=== PATIENT | male | born 1940 | race American Indian/Alaskan Native ===

== ENCOUNTER 2022-03-09 07:53 | Inpatient (IN) ==
--- NOTE | 2022-03-09 08:56 | Internal Med History&Physical ---
HPI History of Present Illness Patient information: Note initiated : 03/09/22 at 8:39 am Service Date, if different from initiated Date: [] Patient: Jagdeep Hair a 81 y/o M admitted on for Pneumonia. Chief Complaint: [shortness of breath] Chief complaint: shortness of breath History of present illness: Mr. 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) Nicotine dependence (Chronic) COPD exacerbation (Chronic) Sepsis (Chronic) Right-sided chest pain (Chronic) Shortness of breath (Chronic) Nausea & vomiting (Chronic) Osteoarthritis (Chronic) Hypothyroidism (Chronic) Hypertension (Chronic) Chronic obstructive pulmonary disease (Chronic) Bilateral pneumonia (Chronic) Hypoglycemia (Chronic) Diabetes mellitus (Chronic) Bronchiectasis (Chronic) Anemia (Chronic) Hyperparathyroidism due to renal insufficiency (Chronic) Chronic kidney disease, stage IV (severe) (Chronic) Secondary hyperparathyroidism of renal origin (Chronic) Edema (Chronic) Proteinuria (Chronic) Hypertensive renal disease (Chronic) History of pacemaker (Acute) Hx of arthroscopy of knee (Acute) Hx of renal calculi (Acute) History of repair of hiatal hernia (Acute) Hx of heart surgery (Acute) Hx of cystoscopy (Acute) Hx of appendectomy (Acute) Vitamin D deficiency (Chronic) Renal osteodystrophy (Chronic) Accessory kidney (Chronic) Hypertension, essential (Chronic) Hypercholesterolemia (Chronic) Hypertension in chronic kidney disease due to type 2 diabetes mellitus (Chronic) Essential hypertension (Chronic) DM (diabetes mellitus) type II controlled with renal manifestation (Chronic) Depression (Chronic) Coronary artery disease (Chronic) Chronic kidney disease, stage III (moderate) (Chronic) Chondromalacia of patella (Chronic) Asthma (Chronic) Medical History (Updated 03/09/22 @ 08:54 by Antolin Clinton MD) Accessory kidney Anemia Asthma Bilateral pneumonia Right greater than left Blindness of right eye False eye Bronchiectasis Chondromalacia of patella left Knee- Dr. Zavala Chronic kidney disease, stage III (moderate) Chronic kidney disease, stage IV (severe) Chronic obstructive pulmonary disease COPD exacerbation Coronary artery disease Depression Diabetes mellitus DM (diabetes mellitus) type II controlled with renal manifestation He reports his blood sugars are low. I had increased his glipizide to 10 mg twice dialy and I will add Actos 30 mg once daily. Edema Essential hypertension Hypertension. Blood pressures are high in the office but he is postural at home. I had cut down his Lasiz and Micardis to 40 mg each daily and increased his clonidine to 0.2 b.i.d. the last time he was here. I will discontinue the Micardis at this time. If the blood pressure is still low, then he can discontinue the norvasc. Hx of renal calculi 12/23/95 Hypercholesterolemia Hyperparathyroidism due to renal insufficiency Hypertension Hypertension in chronic kidney disease due to type 2 diabetes mellitus Hypertension, essential Hypertensive renal disease Hypoglycemia Hypothyroidism Multifocal pneumonia Nausea & vomiting Nicotine dependence Osteoarthritis Proteinuria Renal osteodystrophy Renal bone disease Right-sided chest pain Secondary hyperparathyroidism of renal origin Phos improved to 4.6, calcium at upper end of normal at 10.2 ? from volume depletion PTH is elevated to 133 vitamin D is low given current calcium level ct ergocalciferol to once a mth ct sara sbinders will monitor Sepsis Shortness of breath Type 2 diabetes mellitus with peripheral neuropathy Vitamin D deficiency Surgical History History of herniorrhaphy History of pacemaker 07/10/14 Pace-Defib w/lead, insert pilse gen w/single lead History of repair of hiatal hernia 04/19/14 with Mesh Hx of appendectomy 02/08/97 Hx of arthroscopy of knee 02/22/13 Hx of cystoscopy 12/20/92 Hx of heart surgery Family History Other No pertinent family history Social History (Updated 12/06/18 @ 14:47 by Janki Fontenot MD) marital status: alcohol intake frequency: former alcohol drinker MEDS/ALLERGIES Home Medications and Allergies Home Medications Medication Instructions Recorded Confirmed Type aspirin 81 mg chewable tablet 81 mg PO QDAY tab 07/18/15 12/06/18 History cyanocobalamin (vitamin B-12) 1,000 mcg PO QDAY tab 07/18/15 12/06/18 History 1,000 mcg tablet clopidogrel 75 mg tablet 75 mg PO QDAY tab 10/11/15 12/06/18 History rosuvastatin 20 mg tablet 20 mg PO QHS tab 10/11/15 12/06/18 History isosorbide mononitrate 60 mg 60 mg PO QDAY 30 Days #30 tab 04/23/16 12/06/18 History tablet,extended release 24 hr albuterol sulfate 90 mcg/actuation 2 puff INHALATION Q4H PRN g 02/07/18 07/0 05/09 History aerosol inhaler (ProAir HFA) lancets #50 each 02/07/18 05/27/18 History saxagliptin 2.5 mg tablet (Onglyza) 2.5 mg PO QDAY 02/07/18 12/06/18 History allopurinol 100 mg tablet 100 mg PO QDAY 02/22/18 12/06/18 History ergocalciferol (vitamin D2) 1,250 50,000 unit PO QWEEK #4.285 cap 02/22/18 12/06/18 Rx mcg (50,000 unit) capsule ranitidine HCl 150 mg tablet 150 mg PO BID PRN tab 02/22/18 12/06/18 History sotalol 80 mg tablet 80 mg PO QDAY tab 02/22/18 12/06/18 History acetaminophen 300 mg-codeine 30 mg 1 tab PO Q6H PRN 12/06/18 12/06/18 History tablet furosemide 40 mg tablet 40 mg PO QDAY 12/06/18 12/06/18 History glipizide 5 mg tablet, extended 5 mg PO QDAY 12/06/18 12/06/18 History release 24 hr hydralazine 10 mg tablet 10 mg PO BID #60 tab 12/06/18 12/06/18 Rx losartan 100 mg tablet 100 mg PO QDAY #30 tab 12/06/18 12/06/18 Rx omeprazole 20 mg capsule,delayed 20 mg PO QDAY 12/06/18 12/06/18 History release sevelamer HCl 800 mg tablet 800 mg PO TID 12/06/18 12/06/18 History Allergies Allergy/AdvReac Type Severity Reaction Status Date / Time amlodipine [From [facility]] Allergy Mild Unknown Verified 12/06/18 13:03 azithromycin Allergy Unknown Unknown Unverified 12/06/18 13:03 Influenza Virus Vaccines Allergy Unknown Unknown Verified 12/06/18 13:03 NSAIDS (Non-Steroidal Allergy Unknown Unknown Verified 12/06/18 13:03 Anti-Inflamma ferrous gluconate AdvReac Unknown itchy Verified 12/06/18 13:03 NSAIDS Allergy Mild Unknown Uncoded 12/06/18 13:03 EXAM Constitutional General appearance: cooperative and no acute distress Head Head exam: Present atraumatic and normocephalic Eye Eye exam: Present EOMI and PERRL ENT ENT exam: Present mucous membranes moist, normal exam and normal external ear exam Neck Neck exam: Present normal inspection; Absent lymphadenopathy, tenderness or thyromegaly Respiratory Respiratory exam: Absent accessory muscle use, respiratory distress or wheezes Cardiovascular Cardiovascular exam: Present normal rate and rhythm; Absent JVD GI/Abdominal GI/Abdominal exam: Present normal bowel sounds and soft; Absent organomegaly or tenderness Rectal Rectal exam: Present deferred Extremities Exam Extremities exam: Present full ROM, normal capillary refill and normal inspection; Absent tenderness Neurological Exam Neurological exam: Present alert, CN II-XII intact and oriented X3; Absent motor sensory deficit Psychiatric Psychiatric exam: Present normal affect and normal mood; Absent anxious or depressed Skin Skin exam: Present dry and intact A/P Assessment and plan (1) Type 2 diabetes mellitus with peripheral neuropathy: Status: Chronic (2) Chronic obstructive pulmonary disease: Status: Chronic (3) Hypertension in chronic kidney disease due to type 2 diabetes mellitus: Status: Chronic (4) Hypercholesterolemia: Status: Chronic (5) Coronary artery disease: Status: Chronic (6) ESRD (end stage renal disease) on dialysis: Status: Acute (7) Community acquired pneumonia: Status: Acute Narrative A/P Narrative: Assessment and Plans: 1. Community acquired pneumonia: Luz Marina negative, influenza A/B negative Inpatient med surg Serial lactic acid level Blood culture Levaquin Supplemental oxygen therapy cbc w/ auto diff in the morning to trend WBC Tylenol PRN fever Robitussin DM PRN cough DuoNEB NEB PRN wheezing 2. ESRD on HD: Consult Dr. Escoto for dialysis needs CMP daily to trend kidney functions and electrolyte levels 3. T2DM with diabetic polyneuropathy: HgA1c Hold oral hypoglycemics SSI AC HS Accu Chek AC HS Hypoglycemia protocol Diabetic and renal diet Gabapentin 4. Essential HTN: Continue oral antihypertensives 5. h/o CAD: Aspirin Plavix Statin therapy 6: Dyslipidemia: Statin therapy 7. h/o COPD: Supplemental oxygen therapy DuoNEB NEB PRN wheezing GI ppx: oral PPI DVT ppx: Heparin Code status: Full Prognosis: guarded Disposition: inpatient med surg Time Spent With Patient Time: Total time spent is greater than 50% in coordination of care (as documented) at patient's floor/unit and/or counseling patient: Total time spent with greater than 50% in coordination of care (as documented) at patient's floor/unit and/or counseling patient:: 50 - 70 minutes
--- NOTE | 2022-03-09 10:14 | Internal Med History&Physical ---
HPI History of Present Illness Patient information: Note initiated : 03/09/22 at 10:10 am Service Date, if different from initiated Date: [] Patient: Jagdeep Hair 81 y/o M admitted on 03/09/22 for Pneumonia. Chief Complaint: [shortness of breath] Chief complaint: shortness of breath History of present illness: Mr. Hair is a 81 year old M history of end-stage renal disease on hemodialysis, CAD status post stents placement x1, type 2 diabetes mellitus with neuropathy, COPD, essential hypertensions, presenting with 2-day history of acute onset shortness of breath with productive cough. No prior similar epi sode. He is vaccinated against COVID-pneumonia. Patient denies any sick contact or recent travel. Since yesterday patient had acute onset shortness of breath, worsening. He is also complaining of productive cough with clear sputum. He is coming of chills but denies any fever or diaphoresis. He denies any chest pain or palpitations or any other pains. He presented to outside ED and they screened the patient's for COVID-pneumonia and influenza which were negative. Chest x-ray showing right middle lobe infiltrate cannot consistent with pneumonia. Admission request was made for bed not being available in their facility. Constitutional Constitutional: Present chills and weakness; Absent excessive sweating, fatigue or fever(s) EENT Eyes: Absent blurry vision, change in vision, loss of vision or other visual disturbances Ears: Absent decreased hearing or tinnitus Nose, mouth and throat: Absent abnormal hearing, dry mouth, headache(s), nasal congestion or sore throat Cardiovascular Cardiovascular: Absent chest pain, chest pain at rest, edema, irregular heart rhythm or palpatations Respiratory Respiratory: Present cough, dyspnea and excessive phlegm production; Absent wheezing Gastrointestinal Gastrointestinal: Absent abdominal pain, constipation, diarrhea, nausea or vomit ing Musculoskeletal Musculoskeletal: Absent back pain, deformity, limited range of motion, muscle cramps, muscle weakness or numbness Integumentary Integumentary: Absent lesions, rash or wounds Neurological Neurological: Absent focal weakness, headache(s) or numbness Psychiatric Psychiatric: Absent anxiety, depression or hallucinations PFSH PFSH All Active Problems (Updated 03/09/22 @ 08:54 by Antolin Clinton MD) Community acquired pneumonia (Acute) ESRD (end stage renal disease) on dialysis (Acute) Multifocal pneumonia (Chronic) 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) Nicotine dependence (Chronic) COPD exacerbation (Chronic) Sepsis (Chronic) Right-sided chest pain (Chronic) Shortness of breath (Chronic) Nausea & vomiting (Chronic) Osteoarthritis (Chronic) Hypothyroidism (Chronic) Hypertension (Chronic) Chronic obstructive pulmonary disease (Chronic) Bilateral pneumonia (Chronic) Hypoglycemia (Chronic) Diabetes mellitus (Chronic) Bronchiectasis (Chronic) Anemia (Chronic) Hyperparathyroidism due to renal insufficiency (Chronic) Chronic kidney disease, stage IV (severe) (Chronic) Secondary hyperparathyroidism of renal origin (Chronic) Edema (Chronic) Proteinuria (Chronic) Hypertensive renal disease (Chronic) History of pacemaker (Acute) Hx of arthroscopy of knee (Acute) Hx of renal calculi (Acute) History of repair of hiatal hernia (Acute) Hx of heart surgery (Acute) Hx of cystoscopy (Acute) Hx of appendectomy (Acute) Vitamin D deficiency (Chronic) Renal osteodystrophy (Chronic) Accessory kidney (Chronic) Hypertension, essential (Chronic) Hypercholesterolemia (Chronic) Hypertension in chronic kidney disease due to type 2 diabetes mellitus (Chronic) Essential hypertension (Chronic) DM (diabetes mellitus) type II controlled with renal manifestation (Chronic) Depression (Chronic) Coronary artery disease (Chronic) Chronic kidney disease, stage III (moderate) (Chronic) Chondromalacia of patella (Chronic) Asthma (Chronic) Medical History (Updated 03/09/22 @ 08:54 by Antolin Clinton MD) Accessory kidney Anemia Asthma Bilateral pneumonia Right greater than left Blindness of right eye False eye Bronchiectasis Chondromalacia of patella left Knee- Dr. Zavala Chronic kidney disease, stage III (moderate) Chronic kidney disease, stage IV (severe) Chronic obstructive pulmonary disease COPD exacerbation Coronary artery disease Depression Diabetes mellitus DM (diabetes mellitus) type II controlled with renal manifestation He reports his blood sugars are low. I had increased his glipizide to 10 mg twice dialy and I will add Actos 30 mg once daily. Edema Essential hypertension Hypertension. Blood pressures are high in the office but he is postural at home. I had cut down his Lasiz and Micardis to 40 mg each daily and increased his clonidine to 0.2 b.i.d. the last time he was here. I will discontinue the Micardis at this time. If the blood pressure is still low, then he can discontinue the norvasc. Hx of renal calculi 02/01/96 Hypercholesterolemia Hyperparathyroidism due to renal insufficiency Hypertension Hypertension in chronic kidney disease due to type 2 diabetes mellitus Hypertension, essential Hypertensive renal disease Hypoglycemia Hypothyroidism Multifocal pneumonia Nausea & vomiting Nicotine dependence Osteoarthritis Proteinuria Renal osteodystrophy Renal bone disease Right-sided chest pain Secondary hyperparathyroidism of renal origin Phos improved to 4.6, calcium at upper end of normal at 10.2 ? from volume depletion PTH is elevated to 133 vitamin D is low given current calcium level ct ergocalciferol to once a mth ct sara sbinders will monitor Sepsis Shortness of breath Type 2 diabetes mellitus with peripheral neuropathy Vitamin D deficiency Surgical History History of herniorrhaphy History of pacemaker 07/10/14 Pace-Defib w/lead, insert pilse gen w/single lead History of repair of hiatal hernia 04/19/14 with Mesh Hx of appendectomy 02/08/97 Hx of arthroscopy of knee 02/22/13 Hx of cystoscopy 12/20/92 Hx of heart surgery Family History Other No pertinent family history Social History (Updated 12/06/18 @ 14:47 by Janki Fontenot MD) marital status: alcohol intake frequency: former alcohol drinker MEDS/ALLERGIES Home Medications and Allergies Home Medications Medication Instructions Recorded Confirmed Type aspirin 81 mg chewable tablet 81 mg PO QDAY tab 07/18/15 12/06/18 History cyanocobalamin (vitamin B-12) 1,000 mcg PO QDAY tab 07/18/15 12/06/18 History 1,000 mcg tablet clopidogrel 75 mg tablet 75 mg PO QDAY tab 10/11/15 12/06/18 History rosuvastatin 20 mg tablet 20 mg PO QHS tab 10/11/15 12/06/18 History isosorbide mononitrate 60 mg 60 mg PO QDAY 30 Days #30 tab 04/23/16 12/06/18 History tablet,extended release 24 hr albuterol sulfate 90 mcg/actuation 2 puff INHALATION Q4H PRN g 02/07/1805/09 History aerosol inhaler (ProAir HFA) lancets #50 each 02/07/18 05/27/18 History saxagliptin 2.5 mg tablet (Onglyza) 2.5 mg PO QDAY 02/07/18 12/06/18 History allopurinol 100 mg tablet 100 mg PO QDAY 02/22/18 12/06/18 History ergocalciferol (vitamin D2) 1,250 50,000 unit PO QWEEK #4.285 cap 02/22/18 12/06/18 Rx mcg (50,000 unit) capsule ranitidine HCl 150 mg tablet 150 mg PO BID PRN tab 02/22/18 12/06/18 History sotalol 80 mg tablet 80 mg PO QDAY tab 02/22/18 12/06/18 History acetaminophen 300 mg-codeine 30 mg 1 tab PO Q6H PRN 12/06/18 12/06/18 History tablet furosemide 40 mg tablet 40 mg PO QDAY 12/06/18 12/06/18 History glipizide 5 mg tablet, extended 5 mg PO QDAY 12/06/18 12/06/18 History release 24 hr hydralazine 10 mg tablet 10 mg PO BID #60 tab 12/06/18 12/06/18 Rx losartan 100 mg tablet 100 mg PO QDAY #30 tab 12/06/18 12/06/18 Rx omeprazole 20 mg capsule,delayed 20 mg PO QDAY 12/06/18 12/06/18 History release sevelamer HCl 800 mg tablet 800 mg PO TID 12/06/18 12/06/18 History Allergies Allergy/AdvReac Type Severity Reaction Status Date / Time amlodipine [From [facility]] Allergy Mild Unknown Verified 12/06/18 13:03 azithromycin Allergy Unknown Unknown Unverified 12/06/18 13:03 Influenza Virus Vaccines Allergy Unknown Unknown Verified 12/06/18 13:03 NSAIDS (Non-Steroidal Allergy Unknown Unknown Verified 12/06/18 13:03 Anti-Inflamma ferrous gluconate AdvReac Unknown itchy Verified 12/06/18 13:03 NSAIDS Allergy Mild Unknown Uncoded 12/06/18 13:03 EXAM Constitutional General appearance: cooperative and no acute distress Head Head exam: Present atraumatic and normocephalic Eye Eye exam: Absent EOMI or PERRL Additional comments: right eye blindness ENT ENT exam: Present mucous membranes moist, normal exam and normal external ear exam Additional comments: Nasal cannula in place Neck Neck exam: Present normal inspection; Absent lymphadenopathy, tenderness or thyromegaly Respiratory Respiratory exam: Present rhonchi; Absent accessory muscle use, respiratory distress or wheezes Cardiovascular Cardiovascular exam: Present normal rate and rhythm; Absent JVD GI/Abdominal GI/Abdominal exam: Present normal bowel sounds and soft; Absent organomegaly or tenderness Rectal Rectal exam: Present deferred Extremities Exam Extremities exam: Present full ROM, normal capillary refill and normal inspection; Absent tenderness Additional comments: AV fistula with palpable thrill in right arm Neurological Exam Neurological exam: Present alert, CN II-XII intact and oriented X3; Absent motor sensory deficit Psychiatric Psychiatric exam: Present normal affect and normal mood; Absent anxious or depressed Skin Skin exam: Present dry and intact A/P Assessment and plan (1) Type 2 diabetes mellitus with peripheral neuropathy: Status: Chronic (2) Chronic obstructive pulmonary disease: Status: Chronic (3) Hypertension in chronic kidney disease due to type 2 diabetes mellitus: Status: Chronic (4) Hypercholesterolemia: Status: Chronic (5) Coronary artery disease: Status: Chronic (6) ESRD (end stage renal disease) on dialysis: Status: Acute (7) Community acquired pneumonia: Status: Acute Narrative A/P Narrative: Assessment and Plans: 1. Community acquired pneumonia: Luz Marina negative, influenza A/B negative Inpatient med surg Serial lactic acid level Procalcitonin Blood culture Levaquin Supplemental oxygen therapy cbc w/ auto diff in the morning to trend WBC Tylenol PRN fever Robitussin DM PRN cough DuoNEB NEB PRN wheezing 2. ESRD on HD: Consult Dr. Escoto for dialysis needs CMP daily to trend kidney functions and electrolyte levels 3. T2DM with diabetic polyneuropathy: HgA1c Hold oral hypoglycemics SSI AC HS Accu Chek AC HS Hypoglycemia protocol Diabetic and renal diet Gabapentin 4. Essential HTN: Continue oral antihypertensives 5. h/o CAD: Aspirin Plavix Statin therapy 6: Dyslipidemia: Statin therapy 7. h/o COPD: Supplemental oxygen therapy DuoNEB NEB PRN wheezing GI ppx: oral PPI DVT ppx: Heparin Code status: DNI Prognosis: guarded Disposition: inpatient med surg Time Spent With Patient Time: Total time spent is greater than 50% in coordination of care (as documented) at patient's floor/unit and/or counseling patient: Total time spent with greater than 50% in coordination of care (as documented) at patient's floor/unit and/or counseling patient:: 50 - 70 minutes
[2022-03-09] MEDS ORDERED: ALBUTEROL SULFATE 200 PUFF INHALER INH PRN (10:22)
[2022-03-09] MEDS ORDERED: guaiFENesin/DEXTROMETHORPHAN ORAL SOL PO PRN (10:22)
[2022-03-09] MEDS ORDERED: ZOLPIDEM 5 MG TABLET PO PRN (10:22)
[2022-03-09] MEDS ORDERED: DEXTROSE 50% 50 ML VIAL IV PRN (10:22)
[2022-03-09] MEDS ORDERED: IPRATROPIUM/ALBUTEROL 3 ML AMPUL.NEB NEB PRN (10:22)
[2022-03-09] MEDS ORDERED: ONDANSETRON 4 MG/2 ML VIAL IV PRN (10:22)
[2022-03-09] MEDS ORDERED: LEVOFLOXACIN 500 MG/100 ML BAG IV SCH (10:22)
[2022-03-09] MEDS ORDERED: ACETAMINOPHEN W/CODEINE #3 1 TABLET PO PRN (10:22)
[2022-03-09] MEDS ORDERED: DEXTROSE 31 GM ORAL.SUSP PO PRN (10:22)
[2022-03-09] MEDS: hydrALAZINE 10 MG TABLET PO SCH ×3 (11:20→21:34)
[2022-03-09] MEDS: ERGOCALCIFEROL (VITAMIN D2) 50,000 UNIT CAPSULE PO SCH (11:20)
[2022-03-09] MEDS: FUROSEMIDE 40 MG TABLET PO SCH (11:21)
[2022-03-09 11:46] LABS: Estimated Average Glucose(eAG) 94 mg/dL; Hemoglobin A1C 4.9 % Hgb (4.0-6.0)
[2022-03-09] MEDS: OMEPRAZOLE 20 MG CAPSULE PO SCH (11:47)
[2022-03-09] MEDS: ALLOPURINOL 100 MG TABLET PO SCH (11:47)
[2022-03-09] MEDS: HEPARIN 5,000 UNIT/ML VIAL SQ SCH ×2 (11:47→21:16)
[2022-03-09] MEDS: SOTALOL 80 MG TABLET PO SCH (11:47)
[2022-03-09] MEDS: CLOPIDOGREL 75 MG TABLET PO SCH (11:47)
[2022-03-09] MEDS: ISOSORBIDE MONONITRATE 60 MG TAB.XL.24H PO SCH (11:47)
[2022-03-09] MEDS: DOCUSATE SODIUM 100 MG CAPSULE PO SCH ×2 (11:47→21:17)
[2022-03-09] MEDS ORDERED: cefTRIAXone 2 GM in DEXTROSE 5% IN WATER 50 ML IV SCH (12:00)
--- NOTE | 2022-03-09 12:09 | Nephrology Consult Note ---
HPI Data of Consult Patient: new to practice Consult date: 03/09/22 Requesting physician: Antolin Clinton Primary Care Provider: Geovany Pepper Consult Narrative Patient Information: Note initiated : 03/09/22 at 12:07 pm Patient: Jagdeep Hair 81 y/o M admitted on 03/09/22 for Pneumonia. 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 He was presented to [facility] ED and diagnosed with pneumonia. He was transferred to [facility] for inpatient care. Nephrology consultation was requested for end stage renal disease. Chief complaint: Weakness Reason for consult: End stage renal disease on chronic hemodialysis cc:: CC: Antolin Clinton MD Constitutional Constitutional: Present fatigue and weakness EENT Nose, mouth and throat: Absent nasal discharge or sore throat Cardiovascular Cardiovascular: Absent chest pain or palpatations Respiratory Respiratory: Present cough and dyspnea Gastrointestinal Gastrointestinal: Absent abdominal pain or nausea Integumentary Integumentary: Absent rash Neurological Neurological: Present weakness; Absent confusion Psychiatric Psychiatric: Absent anxiety or panic attacks Allergic/Immunologic Allergic/Immunologic: Absent tongue swelling or uticaria PFSH PFSH All Active Problems (Updated 03/09/22 @ 12:08 by Maicol Escoto MD) Community acquired pneumonia (Acute) ESRD (end stage renal disease) on dialysis (Chronic) Multifocal pneumonia (Chronic) 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) Nicotine dependence (Chronic) COPD exacerbation (Chronic) Sepsis (Chronic) Right-sided chest pain (Chronic) Shortness of breath (Chronic) Nausea & vomiting (Chronic) Osteoarthritis (Chronic) Hypothyroidism (Chronic) Hypertension (Chronic) Chronic obstructive pulmonary disease (Chronic) Bilateral pneumonia (Chronic) Hypoglycemia (Chronic) Diabetes mellitus (Chronic) Bronchiectasis (Chronic) Anemia (Chronic) Hyperparathyroidism due to renal insufficiency (Chronic) Chronic kidney disease, stage IV (severe) (Chronic) Secondary hyperparathyroidism of renal origin (Chronic) Edema (Chronic) Proteinuria (Chronic) Hypertensive renal disease (Chronic) History of pacemaker (Acute) Hx of arthroscopy of knee (Acute) Hx of renal calculi (Acute) History of repair of hiatal hernia (Acute) Hx of heart surgery (Acute) Hx of cystoscopy (Acute) Hx of appendectomy (Acute) Vitamin D deficiency (Chronic) Renal osteodystrophy (Chronic) Accessory kidney (Chronic) Hypertension, essential (Chronic) Hypercholesterolemia (Chronic) Hypertension in chronic kidney disease due to type 2 diabetes mellitus (Chronic) Essential hypertension (Chronic) DM (diabetes mellitus) type II controlled with renal manifestation (Chronic) Depression (Chronic) Coronary artery disease (Chronic) Chronic kidney disease, stage III (moderate) (Chronic) Chondromalacia of patella (Chronic) Asthma (Chronic) Medical History (Updated 03/09/22 @ 12:08 by Maicol Escoto MD) Accessory kidney Anemia Asthma Bilateral pneumonia Right greater than left Blindness of right eye False eye Bronchiectasis Chondromalacia of patella left Knee- Dr. Zavala Chronic kidney disease, stage III (moderate) Chronic kidney disease, stage IV (severe) Chronic obstructive pulmonary disease COPD exacerbation Coronary artery disease Depression Diabetes mellitus DM (diabetes mellitus) type II controlled with renal manifestation He reports his blood sugars are low. I had increased his glipizide to 10 mg twice dialy and I will add Actos 30 mg once daily. Edema Essential hypertension Hypertension. Blood pressures are high in the office but he is postural at home. I had cut down his Lasiz and Micardis to 40 mg each daily and increased his clonidine to 0.2 b.i.d. the last time he was here. I will discontinue the Micardis at this time. If the blood pressure is still low, then he can discontinue the norvasc. Hx of renal calculi 12/23/95 Hypercholesterolemia Hyperparathyroidism due to renal insufficiency Hypertension Hypertension in chronic kidney disease due to type 2 diabetes mellitus Hypertension, essential Hypertensive renal disease Hypoglycemia Hypothyroidism Multifocal pneumonia Nausea & vomiting Nicotine dependence Osteoarthritis Proteinuria Renal osteodystrophy Renal bone disease Right-sided chest pain Secondary hyperparathyroidism of renal origin Phos improved to 4.6, calcium at upper end of normal at 10.2 ? from volume depletion PTH is elevated to 133 vitamin D is low given current calcium level ct ergocalciferol to once a mth ct sara sbinders will monitor Sepsis Shortness of breath Type 2 diabetes mellitus with peripheral neuropathy Vitamin D deficiency Surgical History History of herniorrhaphy History of pacemaker 07/10/14 Pace-Defib w/lead, insert pilse gen w/single lead History of repair of hiatal hernia 04/19/14 with Mesh Hx of appendectomy 02/08/97 Hx of arthroscopy of knee 02/22/13 Hx of cystoscopy 12/20/92 Hx of heart surgery Family History Other No pertinent family history Social History (Updated 12/06/18 @ 14:47 by Janki Fontenot MD) marital status: alcohol intake frequency: former alcohol drinker MEDS/ALLERGIES Home Medications and Allergies Home Medications Medication Instructions Recorded Confirmed Type aspirin 81 mg chewable tablet 81 mg PO QDAY tab 07/18/15 12/06/18 History cyanocobalamin (vitamin B-12) 1,000 mcg PO QDAY tab 07/18/15 12/06/18 History 1,000 mcg tablet clopidogrel 75 mg tablet 75 mg PO QDAY tab 10/11/15 12/06/18 History rosuvastatin 20 mg tablet 20 mg PO QHS tab 10/11/15 12/06/18 History isosorbide mononitrate 60 mg 60 mg PO QDAY 30 Days #30 tab 04/23/16 12/06/18 History tablet,extended release 24 hr albuterol sulfate 90 mcg/actuation 2 puff INHALATION Q4H PRN g 02/07/18 05/27/18 History aerosol inhaler (ProAir HFA) lancets #50 each 02/07/18 05/27/18 History saxagliptin 2.5 mg tablet (Onglyza) 2.5 mg PO QDAY 02/07/18 12/06/18 History allopurinol 100 mg tablet 100 mg PO QDAY 02/22/18 12/06/18 History ergocalciferol (vitamin D2) 1,250 50,000 unit PO QWEEK #4.285 cap 02/22/18 12/06/18 Rx mcg (50,000 unit) capsule ranitidine HCl 150 mg tablet 150 mg PO BID PRN tab 02/22/18 12/06/18 History sotalol 80 mg tablet 80 mg PO QDAY tab 02/22/18 12/06/18 History acetaminophen 300 mg-codeine 30 mg 1 tab PO Q6H PRN 12/06/18 12/06/18 History tablet furosemide 40 mg tablet 40 mg PO QDAY 12/06/18 12/06/18 History glipizide 5 mg tablet, extended 5 mg PO QDAY 12/06/18 12/06/18 History release 24 hr hydralazine 10 mg tablet 10 mg PO BID #60 tab 12/06/18 12/06/18 Rx losartan 100 mg tablet 100 mg PO QDAY #30 tab 12/06/18 12/06/18 Rx omeprazole 20 mg capsule,delayed 20 mg PO QDAY 12/06/18 12/06/18 History release sevelamer HCl 800 mg tablet 800 mg PO TID 12/06/18 12/06/18 History Allergies Allergy/AdvReac Type Severity Reaction Status Date / Time amlodipine [From [facility]] Allergy Mild Unknown Verified 12/06/18 13:03 azithromycin Allergy Unknown Unknown Unverified 12/06/18 13:03 Influenza Virus Vaccines Allergy Unknown Unknown Verified 12/06/18 13:03 NSAIDS (Non-Steroidal Allergy Unknown Unknown Verified 12/06/18 13:03 Anti-Inflamma ferrous gluconate AdvReac Unknown itchy Verified 12/06/18 13:03 NSAIDS Allergy Mild Unknown Uncoded 12/06/18 13:03 Physical Examination Vital Signs Vital signs: Temp Pulse Resp BP Pulse Ox 98.1 F 75 20 146/65 92 03/09/22 10:00 03/09/22 10:00 03/09/22 10:00 03/09/22 10:00 03/09/22 10:00 General Appearance General appearance: chronically ill and frail EENT EENT: mucous membranes dry Neck Neck: no JVD Respiratory Respiratory: course breath sounds Cardiovascular Cardiology: no edema and regular rate Gastrointestinal Gastrointestinal: no tenderness Integumentary Integumentary: no rash Psychiatric Psychiatric: mood/affect appropriate and cooperative A/P Assessment and plan (1) ESRD (end stage renal disease) on dialysis: Assessment and plan: Jagdeep Hair is an 81-year-old male with end stage renal disease on hemodialysis, 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 He was presented to [facility] ED and diagnosed with pneumonia. He was transferred to [facility] for inpatient care. Nephrology consultation was requested for end stage renal disease. End stage renal disease on hemodialysis on Wednesday, Wednesday, Wednesday. Chronic anemia due to ESRD. Hyperkalemia. Hyponatremia. Metabolic acidosis. Recommendations/Plan: Hemodialysis today then on Wednesday, Wednesday, Wednesday. The patient seen and evaluated during hemodialysis at 12:46. Status: Chronic Time Spent With Patient Time: Total time spent is greater than 50% in coordination of care (as documented) at patient's floor/unit and/or counseling patient:
[2022-03-09] MEDS: INSULIN LISPRO 1 UNIT/0.01 ML UNIT SQ SCH ×3 (13:06→21:17)
[2022-03-09] MEDS: 0.9 % SODIUM CHLORIDE 10 ML SYRINGE IV SCH ×2 (14:41→21:18)
[2022-03-09] MEDS: SEVELAMER 800 MG TABLET PO SCH ×2 (14:42→17:20)
[2022-03-09] MEDS: DOXYCYCLINE 100 MG in DEXTROSE 5% IN WATER 100 ML IV SCH ×2 (15:50→21:00)
[2022-03-09] MEDS: cefTRIAXone 1 GM VIAL IV SCH (15:50)
[2022-03-09] MEDS: FAMOTIDINE 20 MG TABLET PO SCH (21:16)
[2022-03-09] MEDS: SIMVASTATIN 40 MG TABLET PO SCH (21:16)
[2022-03-09] MEDS: ACETAMINOPHEN 325 MG TABLET PO PRN (21:16)
[2022-03-09] MEDS: SENNOSIDES 1 TABLET PO SCH (21:17)
[2022-03-10] MEDS: 0.9 % SODIUM CHLORIDE 10 ML SYRINGE IV SCH ×3 (05:52→21:18)
[2022-03-10 07:48] LABS: Basophils # (Auto) 0.02 K/mcL (0.00-0.30); Basophils % (Auto) 0.2 % (0.0-2.0); Eosinophils # (Auto) 0.05 K/mcL (0.00-0.70); Eosinophils % (Auto) 0.5 % (0.0-7.0); Hematocrit 27.9 % (40.1-51.0); Lymphocytes # (Auto) 1.07 K/mcL (1.50-4.80); Lymphocytes % (Auto) 10.7 % (15.5-49.0); Mean Cell Volume 96.2 fL (80.0-100.0); Mean Corpuscular HGB Conc 32.3 g/dL (31.0-36.0); Mean Platelet Volume 8.7 fL (7.4-10.4); Monocytes # (Auto) 0.64 K/mcL (0.10-0.90); Monocytes % (Auto) 6.4 % (1.0-12.0); Neutrophils % (Auto) 82.2 % (38.0-78.0); Platelet Count 285 K/mcL (140-440); Red Cell Distribution Width 16.4 % (11.5-14.5)
--- NOTE | 2022-03-10 08:02 | Nephrology Progress Note ---
SUBJECTIVE Subjective Patient information: Note initiated : 03/10/22 at 8:00 am Patient: aJgdeep Hair 81 y/o M admitted on 03/09/22 for Pneumonia. Chief Complaint: Weakness Pertinent ROS: Weakness Dyspnea Constitutional Vitals: Vital Signs Temp Pulse Resp BP Pulse Ox 97.2 F 73 22 142/58 95 03/10/22 06:44 03/10/22 06:44 03/10/22 06:44 03/10/22 06:44 03/10/22 06:44 Period Temp Pulse Resp BP Sys/Estrada Pulse Ox Last 24 Hr 97.2 F-99.5 F 60-80 20-22 115-193/42-108 92-96 Intake and Output 03/09/22 03/10/22 03/10/22 21:59 05:59 13:59 Intake Total 300 200 Output Total 1000 Balance -700 200 Weight 169 lb 12.8 oz Intake & Output: Intake & Output 03/09/22 03/10/22 03/10/22 21:59 05:59 13:59 Intake Total 300 200 Output Total 1000 Balance -700 200 Weight 169 lb 12.8 oz Intake: IV 100 100 Vibramycin 100 mg In Dextrose 5 100 100 % in Water 100 ml @ 100 mls/hr IV Q12H [facility] Rx#:[id number] Oral 200 100 Output: Hemodialysis UF 1000 Other: Stool Size Moderate Stool Color Brown Stool Consistency Formed # Voids 1 # Bowel Movements 1 General appearance: cooperative and no acute distress Head Head exam: Present normal inspection Eye Eye exam: Present normal appearance ENT ENT exam: Present mucous membranes moist Respiratory Respiratory exam: Absent respiratory distress Cardiovascular Cardiovascular exam: Present normal rate and rhythm GI/Abdominal GI/Abdominal exam: Present soft; Absent tenderness Extremities Exam Extremities exam: Absent joint swelling or pedal edema Neurological Exam Neurological exam: Present alert and oriented X3 Psychiatric Psychiatric exam: Present normal affect and normal mood Skin Skin exam: Present warm; Absent rash A/P Assessment and plan (1) ESRD (end stage renal disease) on dialysis: Assessment and plan: Jagdeep Hair is an 81-year-old male with end stage renal disease on hemodialysis, 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 He was presented to [facility] ED and diagnosed with pneumonia. He was transferred to [facility] for inpatient care. Nephrology consultation was requested for end stage renal disease. End stage renal disease on hemodialysis on Wednesday, Wednesday, Wednesday. Chronic anemia due to ESRD. Hyperkalemia, resolved. Hyponatremia, resolved. Metabolic acidosis, resolved. Progress: Hemodialysis on 03/09/22. Recommendations/Plan: Continue hemodialysis on Wednesday, Wednesday, Wednesday. Status: Chronic Time Spent With Patient Time: Total time spent is greater than 50% in coordination of care (as documented) at patient's floor/unit and/or counseling patient:
[2022-03-10 08:31] LABS: ALT/SGPT 30 U/L (<40); AST/SGOT 19 U/L (<40); Albumin 3.2 gm/dL (3.2-5.2); Alkaline Phosphatase 63 U/L (39-117); Bilirubin,Total 0.5 mg/dL (0.1-1.0); Blood Urea Nitrogen 34 mg/dL (8-23); Calcium 8.3 mg/dL (8.6-10.4); Carbon Dioxide 25 mmol/L (22-30); Chloride 93 mmol/L (96-108); Globulin 3.3 gm/dL (2.2-3.7); Glomerular Filtration Rate 11; Glucose 91 mg/dL (70-105)
[2022-03-10 08:32] LABS: Phosphorous 5.4 mg/dL (2.5-4.5)
[2022-03-10] MEDS: ISOSORBIDE MONONITRATE 60 MG TAB.XL.24H PO SCH (08:50)
[2022-03-10] MEDS: hydrALAZINE 10 MG TABLET PO SCH ×2 (08:50→21:16)
[2022-03-10] MEDS: ERGOCALCIFEROL (VITAMIN D2) 50,000 UNIT CAPSULE PO SCH (08:50)
[2022-03-10] MEDS: DOCUSATE SODIUM 100 MG CAPSULE PO SCH ×2 (08:50→21:17)
[2022-03-10] MEDS: SEVELAMER 800 MG TABLET PO SCH ×3 (08:50→17:44)
[2022-03-10] MEDS: SOTALOL 80 MG TABLET PO SCH (08:51)
[2022-03-10] MEDS: ALLOPURINOL 100 MG TABLET PO SCH (08:51)
[2022-03-10] MEDS: CLOPIDOGREL 75 MG TABLET PO SCH (08:51)
[2022-03-10] MEDS: FUROSEMIDE 40 MG TABLET PO SCH (08:51)
[2022-03-10] MEDS: FAMOTIDINE 20 MG TABLET PO SCH ×2 (08:51→21:16)
[2022-03-10] MEDS: ASPIRIN 81 MG TAB.CHEW PO SCH (08:51)
[2022-03-10] MEDS: LOSARTAN 50 MG TABLET PO SCH (08:51)
[2022-03-10] MEDS: OMEPRAZOLE 20 MG CAPSULE PO SCH (08:51)
[2022-03-10] MEDS: HEPARIN 5,000 UNIT/ML VIAL SQ SCH ×2 (08:51→21:17)
[2022-03-10] MEDS: cefTRIAXone 1 GM VIAL IV SCH (08:52)
[2022-03-10] MEDS: CYANOCOBALAMIN (VITAMIN B-12) 1,000 MCG TABLET PO SCH (08:52)
[2022-03-10] MEDS: INSULIN LISPRO 1 UNIT/0.01 ML UNIT SQ SCH ×4 (08:53→21:17)
[2022-03-10] MEDS: DOXYCYCLINE 100 MG in DEXTROSE 5% IN WATER 100 ML IV SCH ×2 (09:07→22:16)
--- NOTE | 2022-03-10 12:33 | Internal Med Progress Note ---
SUBJECTIVE Subjective Patient information: Note initiated : 03/10/22 at 12:29 pm Service Date, if different from initiated Date: [] Patient: Jagdeep Hair 81 y/o M admitted on 03/09/22 for Pneumonia. Chief Complaint: [] Interval history: Mr. Hair is a 81 year old M history of end-stage renal disease on hemodialysis, CAD status post stents placement x1, type 2 diabetes mellitus with neuropathy, COPD, essential hypertensions, presenting with 2-day history of acute onset shortness of breath with productive cough. No prior similar ep isode. He is vaccinated against COVID-pneumonia. Patient denies any sick contact or recent travel. Since yesterday patient had acute onset shortness of breath, worsening. He is also complaining of productive cough with clear sputum. He is coming of chills but denies any fever or diaphoresis. He denies any chest pain or palpitations or any other pains. He presented to outside ED and they screened the patient's for COVID-pneumonia and influenza which were negative. Chest x-ray showing right middle lobe infiltrate cannot consistent with pneumonia. Admission request was made for bed not being available in their facility. 03/10: Afebrile overnight. Blood culture no growth to date. s/p hemodialysis on 03/09. c/o same degree of shortness of breath. c/o productive cough and respiratory wh eezing. c/o chills, denies fever. Continue Rocephin and Doxycycline for pneumonia. Constitutional Vitals: Vital Signs Temp Pulse Resp BP Pulse Ox 36.2 C 73 22 142/58 95 03/10/22 06:44 03/10/22 06:44 03/10/22 08:00 03/10/22 06:44 03/10/22 06:44 Period Temp Pulse Resp BP Sys/Estrada Pulse Ox Last 24 Hr 36.2 C-37.5 C 60-80 20-22 115-193/42-108 92-96 Intake and Output 03/09/22 03/10/22 03/10/22 21:59 05:59 13:59 Intake Total 300 200 500 Output Total 1000 Balance -700 200 500 Weight 77.02 kg Intake & Output: Intake & Output 03/09/22 03/10/22 03/10/22 21:59 05:59 13:59 Intake Total 300 200 500 Output Total 1000 Balance -700 200 500 Weight 77.02 kg Intake: IV 100 100 100 Vibramycin 100 mg In Dextrose 5 100 100 100 % in Water 100 ml @ 100 mls/hr IV Q12H [facility] Rx#:[id number] Oral 200 100 400 Output: Hemodialysis UF 1000 Other: Stool Size Moderate Stool Color Brown Stool Consistency Formed # Voids 1 # Bowel Movements 1 Head Head exam: Present atraumatic and normal inspection Eye Eye exam: Absent normal appearance Additional comments: Right sided blindness ENT ENT exam: Present mucous membranes moist, normal exam and normal external ear exam Additional comments: Nasal cannula in place Neck Neck exam: Present normal inspection Respiratory Respiratory exam: Present rhonchi Cardiovascular Cardiovascular exam: Present normal rate and rhythm GI/Abdominal GI/Abdominal exam: Present normal bowel sounds Extremities Exam Additional comments: AV fistula right arm Back Exam Back exam: Present normal inspection Neurological Exam Neurological exam: Present alert and oriented X3 Skin Skin exam: Present intact and warm OBJ DATA Labs CBC & Chem 7: 03/10/22 07:01 03/10/22 07:01 Labs: Abnormal Lab Results 03/10/22 03/10/22 03/09/22 07:01 07:01 05:35 RBC 2.90 L Hgb 9.0 L Hct 27.9 L RDW 16.4 H Neut % (Auto) 82.2 H Lymph % (Auto) 10.7 L Lymph # (Auto) 1.07 L Absolute Neutrophils 8.21 H Chloride 93 L BUN 34 H Creatinine 4.5 H Calcium 8.3 L Phosphorus 5.4 H Procalcitonin 1.78 H Meds: Medications Acetaminophen (Acetaminophen 325 Mg Tablet) 650 mg PO Q6HP PRN; Protocol PRN Reason: Per Pain Protocol/Fever > 101 Last Admin: 03/09/22 21:16 Dose: 650 mg Documented by: Acetaminophen/Codeine Phosphate (Acetaminophen W/Codeine #3 1 Tablet) 1 tab PO Q6HP PRN; Protocol PRN Reason: pain Albuterol Sulfate (Albuterol Sulfate 200 Puff Inhaler) 2 puff INH Q4HP PRN PRN Reason: Wheezing Albuterol/Ipratropium (Ipratropium/Albuterol 3 Ml Ampul.Neb) 3 ml NEB Q4HRT PRN PRN Reason: Wheezing Allopurinol (Allopurinol 100 Mg Tablet) 100 mg PO QDAY [facility] Last Admin: 03/10/22 08:51 Dose: 100 mg Documented by: Aspirin (Aspirin 81 Mg Tab.Chew) 81 mg PO DAILY [facility] Last Admin: 03/10/22 08:51 Dose: 81 mg Documented by: Ceftriaxone Sodium (Ceftriaxone 1 Gm Vial) 1 gm IV Q24H [facility] Last Admin: 03/10/22 08:52 Dose: 1 gm Documented by: Clopidogrel Bisulfate (Clopidogrel 75 Mg Tablet) 75 mg PO QDAY [facility] Last Admin: 03/10/22 08:51 Dose: 75 mg Documented by: Dextrose (Dextrose 50% 50 Ml Vial) 0 ml IV UD PRN PRN Reason: Per Sliding Scale Diagnostic Test (Pha) (Accu-Chek 1 Each Strip) 1 each FS ACHS [facility] Last Admin: 03/10/22 11:24 Dose: 1 each Documented by: Docusate Sodium (Docusate Sodium 100 Mg Capsule) 100 mg PO BID [facility] Last Admin: 03/10/22 08:50 Dose: 100 mg Documented by: Ergocalciferol (Ergocalciferol (Vitamin D2) 50,000 Unit Capsule) 50,000 unit PO QWEEK [facility] Last Admin: 03/10/22 08:50 Dose: 50,000 unit Documented by: Famotidine (Famotidine 20 Mg Tablet) 20 mg PO BID [facility] Last Admin: 03/10/22 08:51 Dose: 20 mg Documented by: Furosemide (Furosemide 40 Mg Tablet) 40 mg PO QDAY [facility] Last Admin: 03/10/22 08:51 Dose: 40 mg Documented by: Glucose (Dextrose 31 Gm Oral.Susp) 15 gm PO PRN PRN PRN Reason: Hypoglycemia Guaifenesin (Guaifenesin/Dextromethorphan Oral Theodora) 10 ml PO Q4HP PRN PRN Reason: Cough Heparin Sodium (Porcine) (Heparin 5,000 Unit/Ml Vial) 5,000 unit SQ Q12 [facility] Last Admin: 03/10/22 08:51 Dose: 5,000 unit Documented by: Hydralazine HCl (Hydralazine 10 Mg Tablet) 10 mg PO BID [facility] Last Admin: 03/10/22 08:50 Dose: 10 mg Documented by: Doxycycline Hyclate 100 mg/ (Dextrose) 100 mls @ 100 mls/hr IV Q12H [facility] Last Infusion: 03/10/22 10:52 Dose: Infused Documented by: Insulin Human Lispro (Insulin Lispro 1 Unit/0.01 Ml Unit) 0 unit SQ [facility]; Protocol Last Admin: 03/10/22 11:25 Dose: Not Given Documented by: Isosorbide Mononitrate (Isosorbide Mononitrate 60 Mg Tab.Xl.24h) 60 mg PO QDAY [facility] Last Admin: 03/10/22 08:50 Dose: 60 mg Documented by: Losartan Potassium (Losartan 50 Mg Tablet) 100 mg PO QDAY [facility] Last Admin: 03/10/22 08:51 Dose: 100 mg Documented by: Omeprazole (Omeprazole 20 Mg Capsule) 20 mg PO QDAY [facility] Last Admin: 03/10/22 08:51 Dose: 20 mg Documented by: Ondansetron HCl (Ondansetron 4 Mg/2 Ml Vial) 4 mg IV Q6HP PRN PRN Reason: Nausea And Vomiting Cyanocobalamin ( Vitamin B-12) 1,000 Mcg Tablet 1,000 dose PO QDAY [facility] Last Admin: 03/10/22 08:52 Dose: Not Given Documented by: Senna (Sennosides 1 Tablet) 2 tab PO [facility] Last Admin: 03/09/22 21:17 Dose: Not Given Documented by: Sevelamer Carbonate (Sevelamer 800 Mg Tablet) 800 mg PO TIDCC [facility] Last Admin: 03/10/22 08:50 Dose: 800 mg Documented by: Simvastatin (Simvastatin 40 Mg Tablet) 80 mg PO [facility] Last Admin: 03/09/22 21:16 Dose: 80 mg Documented by: Sodium Chloride (0.9 % Sodium Chloride 10 Ml Syringe) 10 ml IV Q8 [facility] Last Admin: 03/10/22 05:52 Dose: 10 ml Documented by: Sotalol HCl (Sotalol 80 Mg Tablet) 80 mg PO QDAY [facility] Last Admin: 03/10/22 08:51 Dose: 80 mg Documented by: Zolpidem Tartrate (Zolpidem 5 Mg Tablet) 5 mg PO HSP PRN PRN Reason: Insomnia A/P Assessment and plan (1) Type 2 diabetes mellitus with peripheral neuropathy: Status: Chronic (2) Chronic obstructive pulmonary disease: Status: Chronic (3) 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 Community acquired pneumonia: [place] negative, influenza A/B negative Inpatient med surg Serial lactic acid level 1.8 Procalcitonin 1.78 Blood culture, no growth to date Rocephin Doxycycline Supplemental oxygen therapy cbc w/ auto diff in the morning to trend WBC Tylenol PRN fever Robitussin DM PRN cough DuoNEB NEB PRN wheezing 2. ESRD on HD: Consult Dr. Escoto for dialysis needs CMP daily to trend kidney functions and electrolyte levels 3. T2DM with diabetic polyneuropathy: HgA1c Hold oral hypoglycemics SSI AC HS Accu Chek AC HS Hypoglycemia protocol Diabetic and renal diet Gabapentin 4. Essential HTN: Continue oral antihypertensives 5. h/o CAD: Aspirin Plavix Statin therapy 6: Dyslipidemia: Statin therapy 7. h/o COPD: Supplemental oxygen therapy DuoNEB NEB PRN wheezing GI ppx: oral PPI DVT ppx: Heparin Code status: DNI Prognosis: guarded Disposition: inpatient med surg Time Spent With Patient Time: Total time spent is greater than 50% in coordination of care (as documented) at patient's floor/unit and/or counseling patient: Total time spent with greater than 50% in coordination of care (as documented) at patient's floor/unit and/or counseling patient:: 25 - 35 minutes QUALITY Stroke Symptom Onset Unknown: No VTE Deep Vein Thrombosis/Pulmonary Embolism Present on Admission: No
[2022-03-10] MEDS ORDERED: 0.9 % SODIUM CHLORIDE 1,000 ML IV SCH (20:45)
[2022-03-10] MEDS: SIMVASTATIN 40 MG TABLET PO SCH (21:16)
[2022-03-10] MEDS: SENNOSIDES 1 TABLET PO SCH (21:18)
[2022-03-11] MEDS: 0.9 % SODIUM CHLORIDE 10 ML SYRINGE IV SCH ×3 (05:09→21:19)
[2022-03-11 06:56] LABS: Basophils # (Auto) 0.03 K/mcL (0.00-0.30); Basophils % (Auto) 0.2 % (0.0-2.0); Eosinophils # (Auto) 0.07 K/mcL (0.00-0.70); Eosinophils % (Auto) 0.5 % (0.0-7.0); Hematocrit 27.9 % (40.1-51.0); Hemoglobin 8.8 g/dL (13.7-17.5); Lymphocytes # (Auto) 0.89 K/mcL (1.50-4.80); Lymphocytes % (Auto) 6.8 % (15.5-49.0); Mean Cell Volume 98.2 fL (80.0-100.0); Mean Corpuscular HGB Conc 31.5 g/dL (31.0-36.0); Mean Platelet Volume 8.6 fL (7.4-10.4); Monocytes # (Auto) 0.79 K/mcL (0.10-0.90); Monocytes % (Auto) 6.1 % (1.0-12.0); Neutrophils % (Auto) 86.4 % (38.0-78.0); Platelet Count 295 K/mcL (140-440); RBC 2.84 M/mcL (4.63-6.08); Red Cell Distribution Width 16.1 % (11.5-14.5)
[2022-03-11 08:22] LABS: Phosphorous 5.5 mg/dL (2.5-4.5)
[2022-03-11 08:27] LABS: ALT/SGPT 23 U/L (<40); AST/SGOT 14 U/L (<40); Albumin 2.9 gm/dL (3.2-5.2); Albumin/Globulin Ratio 0.8 (1.0-2.3); Alkaline Phosphatase 73 U/L (39-117); Bilirubin,Total 0.3 mg/dL (0.1-1.0); Blood Urea Nitrogen 54 mg/dL (8-23); Calcium 8.3 mg/dL (8.6-10.4); Carbon Dioxide 25 mmol/L (22-30); Chloride 93 mmol/L (96-108); Globulin 3.7 gm/dL (2.2-3.7); Glomerular Filtration Rate 8; Glucose 95 mg/dL (70-105)
--- NOTE | 2022-03-11 08:45 | Nephrology Progress Note ---
SUBJECTIVE Subjective Patient information: Note initiated : 03/11/22 at 8:43 am Patient: Jagdeep Hair 81 y/o M admitted on 03/09/22 for Pneumonia. Chief Complaint: Weakness Pertinent ROS: Weakness Constitutional Vitals: Vital Signs Temp Pulse Resp BP Pulse Ox 99.6 F H 59 L 20 121/47 97 03/11/22 07:38 03/11/22 07:38 03/11/22 07:38 03/11/22 07:38 03/11/22 07:38 Period Temp Pulse Resp BP Sys/Estrada Pulse Ox Last 24 Hr 97.9 F-99.6 F 56-66 20-24 96-121/42-54 96-98 Intake and Output 03/10/22 03/11/22 03/11/22 21:59 05:59 13:59 Intake Total 440 540 Output Total 100 Balance 440 540 -100 Weight 170 lb 3.2 oz Intake & Output: Intake & Output 03/10/22 03/11/22 03/11/22 21:59 05:59 13:59 Intake Total 440 540 Output Total 100 Balance 440 540 -100 Weight 170 lb 3.2 oz Intake: Nourishment/Supplement quantity 240 240 (ml) Oral 200 300 Output: Void Amount 100 Other: Meal Nourishment/Supplement Feeding Ability Assist with Tray Set Up Nourishment/Supplement name glucerna Ensure? Urine Color Dark Yellow Urine Odor Strong # Voids 1 General appearance: cooperative and no acute distress Head Head exam: Present normal inspection Eye Eye exam: Present normal appearance ENT ENT exam: Present mucous membranes moist Respiratory Respiratory exam: Absent respiratory distress Cardiovascular Cardiovascular exam: Present normal rate and rhythm GI/Abdominal GI/Abdominal exam: Present soft; Absent tenderness Extremities Exam Extremities exam: Absent joint swelling or pedal edema Neurological Exam Neurological exam: Present alert and oriented X3 Psychiatric Psychiatric exam: Present normal affect and normal mood Skin Skin exam: Present warm; Absent rash A/P Assessment and plan (1) ESRD (end stage renal disease) on dialysis: Assessment and plan: Jagdeep Hair is an 81-year-old male with end stage renal disease on hemodialysis, 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 He was presented to [facility] ED and diagnosed with pneumonia. He was transferred to [facility] for inpatient care. Nephrology consultation was requested for end stage renal disease. End stage renal disease on hemodialysis on Wednesday, Wednesday, Wednesday. Chronic anemia due to ESRD. Progress: Hemodialysis on 03/09/22. Recommendations/Plan: Continue hemodialysis on Wednesday, Wednesday, Wednesday. The patient seen and evaluated during hemodialysis at 10:32. I informed his daughter at bedside. Status: Chronic Time Spent With Patient Time: Total time spent is greater than 50% in coordination of care (as documented) at patient's floor/unit and/or counseling patient:
--- NOTE | 2022-03-11 09:56 | Internal Med Progress Note ---
SUBJECTIVE Subjective Patient information: Note initiated : 03/11/22 at 9:55 am Service Date, if different from initiated Date: [] Patient: Jagdeep Hair a 81 y/o M admitted on 03/09/22 for Pneumonia. Chief Complaint: [] Interval history: Mr. Hair is a 81 year old M history of end-stage renal disease on hemodialysis, CAD status post stents placement x1, type 2 diabetes mellitus with neuropathy, COPD, essential hypertensions, presenting with 2-day history of acute onset shortness of breath with productive cough. No prior similar epi sode. He is vaccinated against COVID-pneumonia. Patient denies any sick contact or recent travel. Since yesterday patient had acute onset shortness of breath, worsening. He is also complaining of productive cough with clear sputum. He is coming of chills but denies any fever or diaphoresis. He denies any chest pain or palpitations or any other pains. He presented to outside ED and they screened the patient's for COVID-pneumonia and influenza which were negative. Chest x-ray showing right middle lobe infiltrate cannot consistent with pneumonia. Admission request was made for bed not being available in their facility. 03/10: Afebrile overnight. Blood culture no growth to date. s/p hemodialysis on 03/09. c/o same degree of shortness of breath. c/o productive cough and respiratory whe ezing. c/o chills, denies fever. Continue Rocephin and Doxycycline for pneumonia. 03/11: Afebrile overnight. On 2L/min oxygen. Sputum culture growing H parainfluenza. Blood culture no growth to date. on hemodialysis now. c/o same degree of shortness of breath. c/o productive cough and respiratory wheezing. c/o general body weakness. c/o subjective fever and chills. Continue Rocephin and Doxycyc line for pneumonia. Constitutional Vitals: Vital Signs Temp Pulse Resp BP Pulse Ox 37.1 C 60 20 158/56 97 03/11/22 08:45 03/11/22 09:48 03/11/22 07:38 03/11/22 09:48 03/11/22 07:38 Period Temp Pulse Resp BP Sys/Estrada Pulse Ox Last 24 Hr 36.6 C-37.6 C 56-66 20-24 96-158/42-59 96-98 Intake and Output 03/10/22 03/11/22 03/11/22 21:59 05:59 13:59 Intake Total 440 540 Output Total 100 Balance 440 540 -100 Weight 77.201 kg Intake & Output: Intake & Output 03/10/22 03/11/22 03/11/22 21:59 05:59 13:59 Intake Total 440 540 Output Total 100 Balance 440 540 -100 Weight 77.201 kg Intake: Nourishment/Supplement quantity 240 240 (ml) Oral 200 300 Output: Void Amount 100 Other: Meal Nourishment/Supplement Feeding Ability Assist with Tray Set Up Nourishment/Supplement name glucerna Ensure? Urine Color Dark Yellow Urine Odor Strong # Voids 1 Head Head exam: Present atraumatic and normal inspection Eye Eye exam: Present normal appearance ENT ENT exam: Present mucous membranes moist, normal exam and normal external ear exam Additional comments: Nasal cannula in place Neck Neck exam: Present normal inspection Respiratory Respiratory exam: Present rhonchi; Absent normal respiratory exam Cardiovascular Cardiovascular exam: Present normal rate and rhythm GI/Abdominal GI/Abdominal exam: Present normal bowel sounds Extremities Exam Additional comments: AV fistula with palpable thrill right arm Back Exam Back exam: Present normal inspection Neurological Exam Neurological exam: Present alert and oriented X3 Skin Skin exam: Present intact and warm OBJ DATA Labs CBC & Chem 7: 03/11/22 05:42 03/11/22 05:42 Labs: Abnormal Lab Results 03/11/22 03/11/22 03/10/22 05:42 05:42 07:01 WBC 13.0 H RBC 2.84 L Hgb 8.8 L Hct 27.9 L RDW 16.1 H Neut % (Auto) 86.4 H Lymph % (Auto) 6.8 L Lymph # (Auto) 0.89 L Absolute Neutrophils 11.22 H Chloride 93 L 93 L BUN 54 H 34 H Creatinine 5.7 H* 4.5 H Calcium 8.3 L 8.3 L Phosphorus 5.5 H 5.4 H Albumin 2.9 L Albumin/Globulin Ratio 0.8 L Procalcitonin 03/10/22 03/09/22 07:01 05:35 WBC RBC 2.90 L Hgb 9.0 L Hct 27.9 L RDW 16.4 H Neut % (Auto) 82.2 H Lymph % (Auto) 10.7 L Lymph # (Auto) 1.07 L Absolute Neutrophils 8.21 H Chloride BUN Creatinine Calcium Phosphorus Albumin Albumin/Globulin Ratio Procalcitonin 1.78 H Meds: Medications Acetaminophen (Acetaminophen 325 Mg Tablet) 650 mg PO Q6HP PRN; Protocol PRN Reason: Per Pain Protocol/Fever > 101 Last Admin: 03/09/22 21:16 Dose: 650 mg Documented by: Acetaminophen/Codeine Phosphate (Acetaminophen W/Codeine #3 1 Tablet) 1 tab PO Q6HP PRN; Protocol PRN Reason: pain Albuterol Sulfate (Albuterol Sulfate 200 Puff Inhaler) 2 puff INH Q4HP PRN PRN Reason: Wheezing Albuterol/Ipratropium (Ipratropium/Albuterol 3 Ml Ampul.Neb) 3 ml NEB Q4HRT PRN PRN Reason: Wheezing Allopurinol (Allopurinol 100 Mg Tablet) 100 mg PO QDAY [facility] Last Admin: 03/10/22 08:51 Dose: 100 mg Documented by: Aspirin (Aspirin 81 Mg Tab.Chew) 81 mg PO DAILY [facility] Last Admin: 03/10/22 08:51 Dose: 81 mg Documented by: Ceftriaxone Sodium (Ceftriaxone 1 Gm Vial) 1 gm IV Q24H [facility] Last Admin: 03/10/22 08:52 Dose: 1 gm Documented by: Clopidogrel Bisulfate (Clopidogrel 75 Mg Tablet) 75 mg PO QDAY [facility] Last Admin: 03/10/22 08:51 Dose: 75 mg Documented by: Dextrose (Dextrose 50% 50 Ml Vial) 0 ml IV UD PRN PRN Reason: Per Sliding Scale Diagnostic Test (Pha) (Accu-Chek 1 Each Strip) 1 each FS ACHS [facility] Last Admin: 03/10/22 21:17 Dose: 1 each Documented by: Docusate Sodium (Docusate Sodium 100 Mg Capsule) 100 mg PO BID [facility] Last Admin: 03/10/22 21:17 Dose: Not Given Documented by: Ergocalciferol (Ergocalciferol (Vitamin D2) 50,000 Unit Capsule) 50,000 unit PO QWEEK [facility] Last Admin: 03/10/22 08:50 Dose: 50,000 unit Documented by: Famotidine (Famotidine 20 Mg Tablet) 20 mg PO BID [facility] Last Admin: 03/10/22 21:16 Dose: 20 mg Documented by: Furosemide (Furosemide 40 Mg Tablet) 40 mg PO QDAY [facility] Last Admin: 03/10/22 08:51 Dose: 40 mg Documented by: Glucose (Dextrose 31 Gm Oral.Susp) 15 gm PO PRN PRN PRN Reason: Hypoglycemia Guaifenesin (Guaifenesin/Dextromethorphan Oral Theodora) 10 ml PO Q4HP PRN PRN Reason: Cough Heparin Sodium (Porcine) (Heparin 5,000 Unit/Ml Vial) 5,000 unit SQ Q12 [facility] Last Admin: 03/10/22 21:17 Dose: 5,000 unit Documented by: Hydralazine HCl (Hydralazine 10 Mg Tablet) 10 mg PO BID [facility] Last Admin: 03/10/22 21:16 Dose: 10 mg Documented by: Doxycycline Hyclate 100 mg/ (Dextrose) 100 mls @ 100 mls/hr IV Q12H [facility] Last Admin: 03/10/22 22:16 Dose: 100 mls/hr Documented by: Insulin Human Lispro (Insulin Lispro 1 Unit/0.01 Ml Unit) 0 unit SQ ACHS [facility]; Protocol Last Admin: 03/10/22 21:17 Dose: Not Given Documented by: Isosorbide Mononitrate (Isosorbide Mononitrate 60 Mg Tab.Xl.24h) 60 mg PO QDAY [facility] Last Admin: 03/10/22 08:50 Dose: 60 mg Documented by: Losartan Potassium (Losartan 50 Mg Tablet) 100 mg PO QDAY [facility] Last Admin: 03/10/22 08:51 Dose: 100 mg Documented by: Omeprazole (Omeprazole 20 Mg Capsule) 20 mg PO QDAY [facility] Last Admin: 03/10/22 08:51 Dose: 20 mg Documented by: Ondansetron HCl (Ondansetron 4 Mg/2 Ml Vial) 4 mg IV Q6HP PRN PRN Reason: Nausea And Vomiting Cyanocobalamin ( Vitamin B-12) 1,000 Mcg Tablet 1,000 dose PO QDAY [facility] Last Admin: 03/10/22 08:52 Dose: Not Given Documented by: Senna (Sennosides 1 Tablet) 2 tab PO HS [facility] Last Admin: 03/10/22 21:18 Dose: Not Given Documented by: Sevelamer Carbonate (Sevelamer 800 Mg Tablet) 800 mg PO TIDCC [facility] Last Admin: 03/10/22 17:44 Dose: 800 mg Documented by: Simvastatin (Simvastatin 40 Mg Tablet) 80 mg PO [facility] Last Admin: 03/10/22 21:16 Dose: 80 mg Documented by: Sodium Chloride (0.9 % Sodium Chloride 10 Ml Syringe) 10 ml IV Q8 [facility] Last Admin: 03/11/22 05:09 Dose: Not Given Documented by: Sotalol HCl (Sotalol 80 Mg Tablet) 80 mg PO QDAY [facility] Last Admin: 03/10/22 08:51 Dose: 80 mg Documented by: Zolpidem Tartrate (Zolpidem 5 Mg Tablet) 5 mg PO HSP PRN PRN Reason: Insomnia A/P Assessment and plan (1) Type 2 diabetes mellitus with peripheral neuropathy: Status: Chronic (2) Chronic obstructive pulmonary disease: Status: Chronic (3) 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 Community acquired pneumonia: [place] negative, influenza A/B negative Inpatient med surg Serial lactic acid level 1.8 Procalcitonin 1.78 Blood culture, no growth to date Sputum culture growing H parainfluenza Rocephin Doxycycline Supplemental oxygen therapy cbc w/ auto diff in the morning to trend WBC Tylenol PRN fever Robitussin DM PRN cough DuoNEB NEB PRN wheezing 2. ESRD on HD: Consult Dr. Escoto for dialysis needs, currently receiving hemodialysis CMP daily to trend kidney functions and electrolyte levels 3. T2DM with diabetic polyneuropathy: HgA1c Hold oral hypoglycemics SSI AC HS Accu Chek AC HS Hypoglycemia protocol Diabetic and renal diet Gabapentin 4. Essential HTN: Continue oral antihypertensives 5. h/o CAD: Aspirin Plavix Statin therapy 6: Dyslipidemia: Statin therapy 7. h/o COPD: Supplemental oxygen therapy DuoNEB NEB PRN wheezing GI ppx: oral PPI DVT ppx: Heparin Code status: DNI Prognosis: guarded Disposition: inpatient med surg Time Spent With Patient Time: Total time spent is greater than 50% in coordination of care (as documented) at patient's floor/unit and/or counseling patient: Total time spent with greater than 50% in coordination of care (as documented) at patient's floor/unit and/or counseling patient:: 35 - 50 minutes QUALITY Stroke Symptom Onset Unknown: No VTE Deep Vein Thrombosis/Pulmonary Embolism Present on Admission: No
[2022-03-11] MEDS: ASPIRIN 81 MG TAB.CHEW PO SCH (12:45)
[2022-03-11] MEDS: hydrALAZINE 10 MG TABLET PO SCH ×2 (12:46→21:17)
[2022-03-11] MEDS: FUROSEMIDE 40 MG TABLET PO SCH (12:46)
[2022-03-11] MEDS: SEVELAMER 800 MG TABLET PO SCH ×3 (12:46→16:58)
[2022-03-11] MEDS: CLOPIDOGREL 75 MG TABLET PO SCH (12:47)
[2022-03-11] MEDS: ALLOPURINOL 100 MG TABLET PO SCH (12:47)
[2022-03-11] MEDS: DOCUSATE SODIUM 100 MG CAPSULE PO SCH ×2 (12:47→21:17)
[2022-03-11] MEDS: ISOSORBIDE MONONITRATE 60 MG TAB.XL.24H PO SCH (12:48)
[2022-03-11] MEDS: OMEPRAZOLE 20 MG CAPSULE PO SCH (12:48)
[2022-03-11] MEDS: FAMOTIDINE 20 MG TABLET PO SCH ×2 (12:48→21:18)
[2022-03-11] MEDS: LOSARTAN 50 MG TABLET PO SCH (12:49)
[2022-03-11] MEDS: HEPARIN 5,000 UNIT/ML VIAL SQ SCH ×2 (12:49→21:18)
[2022-03-11] MEDS: INSULIN LISPRO 1 UNIT/0.01 ML UNIT SQ SCH ×4 (12:50→20:59)
[2022-03-11] MEDS: DOXYCYCLINE 100 MG in DEXTROSE 5% IN WATER 100 ML IV SCH ×2 (13:01→21:19)
[2022-03-11] MEDS: SOTALOL 80 MG TABLET PO SCH (13:02)
[2022-03-11] MEDS: CYANOCOBALAMIN (VITAMIN B-12) 1,000 MCG TABLET PO SCH (13:02)
[2022-03-11] MEDS: cefTRIAXone 1 GM VIAL IV SCH (14:30)
[2022-03-11] MEDS: SIMVASTATIN 40 MG TABLET PO SCH (21:18)
[2022-03-11] MEDS: SENNOSIDES 1 TABLET PO SCH (21:18)
[2022-03-11] MEDS: ACETAMINOPHEN 325 MG TABLET PO PRN (23:31)
[2022-03-12] MEDS: 0.9 % SODIUM CHLORIDE 10 ML SYRINGE IV SCH (04:38)
[2022-03-12 07:09] LABS: Basophils # (Auto) 0.05 K/mcL (0.00-0.30); Basophils % (Auto) 0.5 % (0.0-2.0); Eosinophils # (Auto) 0.05 K/mcL (0.00-0.70); Eosinophils % (Auto) 0.5 % (0.0-7.0); Hematocrit 38.9 % (40.1-51.0); Hemoglobin 12.5 g/dL (13.7-17.5); Lymphocytes # (Auto) 1.02 K/mcL (1.50-4.80); Lymphocytes % (Auto) 10.4 % (15.5-49.0); Mean Cell Volume 97.3 fL (80.0-100.0); Mean Corpuscular HGB Conc 32.1 g/dL (31.0-36.0); Mean Platelet Volume 8.7 fL (7.4-10.4); Monocytes # (Auto) 0.66 K/mcL (0.10-0.90); Monocytes % (Auto) 6.7 % (1.0-12.0); Neutrophils % (Auto) 81.9 % (38.0-78.0); Platelet Count 270 K/mcL (140-440); Red Cell Distribution Width 15.8 % (11.5-14.5); WBC 9.8 K/mcL (4.5-11.0)
[2022-03-12 07:16] LABS: ALT/SGPT 19 U/L (<40); AST/SGOT 17 U/L (<40); Albumin 2.4 gm/dL (3.2-5.2); Albumin/Globulin Ratio 0.6 (1.0-2.3); Alkaline Phosphatase 88 U/L (39-117); Bilirubin,Total 0.3 mg/dL (0.1-1.0); Blood Urea Nitrogen 36 mg/dL (8-23); Calcium 8.1 mg/dL (8.6-10.4); Carbon Dioxide 23 mmol/L (22-30); Chloride 93 mmol/L (96-108); Globulin 4.3 gm/dL (2.2-3.7); Glomerular Filtration Rate 10; Glucose 87 mg/dL (70-105); Phosphorous 5.8 mg/dL (2.5-4.5)
[2022-03-12] MEDS: INSULIN LISPRO 1 UNIT/0.01 ML UNIT SQ SCH ×2 (08:20→11:40)
[2022-03-12] MEDS: cefTRIAXone 1 GM VIAL IV SCH (08:21)
[2022-03-12] MEDS: HEPARIN 5,000 UNIT/ML VIAL SQ SCH (08:21)
[2022-03-12] MEDS: OMEPRAZOLE 20 MG CAPSULE PO SCH (08:22)
[2022-03-12] MEDS: SEVELAMER 800 MG TABLET PO SCH ×2 (08:22→11:40)
[2022-03-12] MEDS: ISOSORBIDE MONONITRATE 60 MG TAB.XL.24H PO SCH (08:22)
[2022-03-12] MEDS: hydrALAZINE 10 MG TABLET PO SCH (08:23)
[2022-03-12] MEDS: SOTALOL 80 MG TABLET PO SCH (08:23)
[2022-03-12] MEDS: ASPIRIN 81 MG TAB.CHEW PO SCH (08:23)
[2022-03-12] MEDS: LOSARTAN 50 MG TABLET PO SCH (08:24)
[2022-03-12] MEDS: DOCUSATE SODIUM 100 MG CAPSULE PO SCH (08:24)
[2022-03-12] MEDS: FUROSEMIDE 40 MG TABLET PO SCH (08:24)
[2022-03-12] MEDS: ALLOPURINOL 100 MG TABLET PO SCH (08:24)
[2022-03-12] MEDS: FAMOTIDINE 20 MG TABLET PO SCH (08:25)
[2022-03-12] MEDS: CLOPIDOGREL 75 MG TABLET PO SCH (08:25)
[2022-03-12] MEDS: CYANOCOBALAMIN (VITAMIN B-12) 1,000 MCG TABLET PO SCH (08:25)
--- NOTE | 2022-03-12 08:55 | Nephrology Progress Note ---
SUBJECTIVE Subjective Patient information: Note initiated : 03/12/22 at 8:53 am Patient: Jagdeep Hair 81 y/o M admitted on 03/09/22 for Pneumonia. Chief Complaint: Weakness Pertinent ROS: Feeling better Weakness Dyspnea Constitutional Vitals: Vital Signs Temp Pulse Resp BP Pulse Ox 97.0 F 54 L 19 86/35 99 03/12/22 08:00 03/12/22 08:00 03/12/22 08:00 03/12/22 08:00 03/12/22 08:00 Period Temp Pulse Resp BP Sys/Estrada Pulse Ox Last 24 Hr 97.0 F-98.8 F 54-74 - 86-158/35-90 90-99 Intake and Output 03/11/22 03/12/22 03/12/22 21:59 05:59 13:59 Intake Total 665 940 Balance 665 940 Weight 160 lb 11.2 oz Intake & Output: Intake & Output 03/11/22 03/12/22 03/12/22 21:59 05:59 13:59 Intake Total 665 940 Balance 665 940 Weight 160 lb 11.2 oz Intake: IV 100 100 Vibramycin 100 mg In Dextrose 5 100 100 % in Water 100 ml @ 100 mls/hr IV Q12H [facility] Rx#:[id number] Oral 565 840 Other: Meal Lunch Percent of Meal Consumed 25% Feeding Ability Assist with Tray Set Up Head Head exam: Present atraumatic and normal inspection Eye Eye exam: Present normal appearance ENT ENT exam: Present mucous membranes moist, normal exam and normal external ear exam Neck Neck exam: Present normal inspection Respiratory Respiratory exam: Present normal respiratory exam Cardiovascular Cardiovascular exam: Present normal rate and rhythm GI/Abdominal GI/Abdominal exam: Present normal bowel sounds Back Exam Back exam: Present normal inspection Neurological Exam Neurological exam: Present alert and oriented X3 Skin Skin exam: Present intact and warm A/P Assessment and plan (1) ESRD (end stage renal disease) on dialysis: Assessment and plan: Jagdeep Hair is an 81-year-old male with end stage renal disease on hemodialysis, 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 He was presented to [facility] ED and diagnosed with pneumonia. He was transferred to [facility] for inpatient care. Nephrology consultation was requested for end stage renal disease. End stage renal disease on hemodialysis on Wednesday, Wednesday, Wednesday. Chronic anemia due to ESRD. Progress: Hemodialysis on 03/09/22 and 03/11/22. Recommendations/Plan: Continue hemodialysis on Wednesday, Wednesday, Wednesday. Status: Chronic Time Spent With Patient Time: Total time spent is greater than 50% in coordination of care (as documented) at patient's floor/unit and/or counseling patient:
[2022-03-12] MEDS: DOXYCYCLINE 100 MG in DEXTROSE 5% IN WATER 100 ML IV SCH (11:40)
--- NOTE | 2022-03-12 12:19 | Discharge Summary ---
Discharge Provider Provider Patient information: Note initiated : 03/12/22 at 12:17 pm Service Date, if different from initiated Date: [] Patient: Jagdeep Hair 81 y/o M admitted on 03/09/22 for Pneumonia. Chief Complaint: [] Date of admission: 03/09/22 09:30 Discharge date: 03/12/22 Primary care physician: Geovany Pepper Consults: 03/09/22 10:22 Consult to Physician [CONS] Routine Comment: Consulting Provider: Maicol Escoto Reason For Exam: Physician to Consult Discharge Meds Discharge Medications Home Medications aspirin 81 mg chewable tablet 81 mg PO QDAY tab 07/18/15 [History Confirmed 03/10/22 Last Taken Unknown] cyanocobalamin (vitamin B-12) 1,000 mcg tablet 1,000 mcg PO QDAY tab 07/18/15 [History Confirmed 03/10/22 Last Taken Unknown] clopidogrel 75 mg tablet 75 mg PO QDAY tab 10/11/15 [History Confirmed 03/10/22 Last Taken Unknown] rosuvastatin 20 mg tablet 20 mg PO QHS tab 10/11/15 [History Confirmed 03/10/22 Last Taken Unknown] isosorbide mononitrate 60 mg tablet,extended release 24 hr 60 mg PO QDAY 30 Days #30 tab 04/23/16 [History Confirmed 03/10/22 Last Taken Unknown] albuterol sulfate 90 mcg/actuation aerosol inhaler (ProAir HFA) 2 puff INHALATION Q4H g 02/07/18 [History Confirmed 03/10/22 Last Taken Unknown] lancets #50 each 02/07/18 [History Confirmed 05/27/18 Last Taken Unknown] allopurinol 100 mg tablet 100 mg PO QDAY 02/22/18 [History Confirmed 03/10/22 Last Taken Unknown] ergocalciferol (vitamin D2) 1,250 mcg (50,000 unit) capsule 50,000 unit PO QWEEK #4.285 cap 02/22/18 [Rx Confirmed 03/10/22 Last Taken Unknown] ranitidine HCl 150 mg tablet 150 mg PO BID PRN tab 02/22/18 [History Confirmed 03/10/22 Last Taken Unknown] sotalol 80 mg tablet 80 mg PO QDAY tab 02/22/18 [History Confirmed 03/10/22 Last Taken Unknown] acetaminophen 300 mg-codeine 30 mg tablet 1 tab PO Q6H PRN MDD 4 tabs per day 12/06/18 [History Confirmed 03/10/22 Last Taken Unknown] furosemide 40 mg tablet 40 mg PO QDAY 12/06/18 [History Confirmed 03/10/22 Last Taken Unknown] hydralazine 10 mg tablet 10 mg PO BID #60 tab 12/06/18 [Rx Confirmed 03/10/22 Last Taken Unknown] omeprazole 20 mg capsule,delayed release 20 mg PO QDAY 12/06/18 [History Confirmed 03/10/22 Last Taken Unknown] sevelamer HCl 800 mg tablet 800 mg PO TID 12/06/18 [History Confirmed 03/10/22 Last Taken Unknown] cefuroxime axetil 250 mg tablet 250 mg PO DAILY 3 Days #3 tab 03/12/22 [Rx Last Taken Unknown] doxycycline hyclate 100 mg capsule 100 mg PO BID 3 Days #6 cap 03/12/22 [Rx Last Taken Unknown] COURSE Hospital Course Hospital course: Mr. Hair is a 81 year old M history of end-stage renal disease on hemodialysis, CAD status post stents placement x1, type 2 diabetes mellitus with neuropathy, COPD, essential hypertensions, presenting with 2-day history of acute onset shortness of breath with productive cough. No prior similar episode. He is vaccinated against COVID-pneumonia. Patient denies any sick contact or recent travel. Since yesterday patient had acute onset shortness of breath, worsening. He is also complaining of productive cough with clear sputum. He is coming of chills but denies any fever or diaphoresis. He denies any chest pain or palpitations or any other pains. He presented to outside ED and they screened the patient's for COVID-pneumonia and influenza which were negative. Chest x-ray showing right middle lobe infiltrate cannot consistent with pneumonia. Admission request was made for bed not being available in their facility. 03/10: Afebrile overnight. Blood culture no growth to date. s/p hemodialysis on 03/09. c/o same degree of shortness of breath. c/o productive cough and respiratory wheezing. c/o chills, denies fever. Continue Rocephin and Doxycycline for pneumonia. 03/11: Afebrile overnight. On 2L/min oxygen. Sputum culture growing H parainfluenza. Blood culture no growth to date. on hemodialysis now. c/o same degree of shortness of breath. c/o productive cough and respiratory wheezing. c/o general body weakness. c/o subjective fever and chills. Continue Rocephin and Doxycycline for pneumonia. 03/12 Discharged to home, complete community-acquired pneumonia treatment with renally dosed cefuroxime as well as oral doxycycline. Recommend repeat pulmonary imaging about 4 weeks after completing antibiotic treatment. Discharge diagnosis: Community-acquired pneumonia Time Spent with Patient Time attestation: Total time spent providing and/or coordinating discharge services: EXAM Constitutional Vitals: Temp Pulse Resp BP Pulse Ox 97.4 F 50 L 17 108/48 96 03/12/22 11:23 03/12/22 11:23 03/12/22 11:23 03/12/22 11:23 03/12/22 11:23 Discharge Data Data Completed and Pending Labs on day of discharge: Labs from last 24 hours 03/12/22 03/12/22 05:35 05:35 WBC 9.8 RBC 4.00 L Hgb 12.5 L Hct 38.9 L MCV 97.3 MCH 31.3 MCHC 32.1 RDW 15.8 H Plt Count 270 MPV 8.7 Neut % (Auto) 81.9 H Lymph % (Auto) 10.4 L Garrett % (Auto) 6.7 Eos % (Auto) 0.5 Baso % (Auto) 0.5 Lymph # (Auto) 1.02 L Garrett # (Auto) 0.66 Eos # (Auto) 0.05 Baso # (Auto) 0.05 Absolute Neutrophils 8.01 H Sodium 131 L Potassium 4.1 Chloride 93 L Carbon Dioxide 23 Anion Gap 15.0 BUN 36 H Creatinine 4.9 H GFR Calculation 10 Glucose 87 Calcium 8.1 L Phosphorus 5.8 H Magnesium 2.3 Total Bilirubin 0.3 AST 17 ALT 19 Alkaline Phosphatase 88 Total Protein 6.7 Albumin 2.4 L Globulin 4.3 H Albumin/Globulin Ratio 0.6 L Discharge Plan Patient/Caregiver Discharge Instructions Activity: increase activity as tolerated Diet: Renal/Consistent Carbs Prescriptions: New doxycycline hyclate 100 mg capsule 100 mg PO BID 3 Days Qty: 6 0RF cefuroxime axetil 250 mg tablet 250 mg PO DAILY 3 Days Qty: 3 0RF Continued aspirin 81 mg tablet,chewable 81 mg PO QDAY 0RF cyanocobalamin (vitamin B-12) 1,000 mcg tablet 1,000 mcg PO QDAY 0RF rosuvastatin 20 mg tablet 20 mg PO QHS 0RF ranitidine HCl 150 mg tablet 150 mg PO BID PRN (Reason: Abdominal Discomfort) 0RF albuterol sulfate [ProAir HFA] 90 mcg/actuation HFA aerosol inhaler 2 puff INHALATION Q4H 0RF (DME) lancets misc See Dose Instructions .ROUTE .MEDSUPPLY Qty: 50 0RF Rx Instructions: As directed clopidogrel 75 mg tablet 75 mg PO QDAY 0RF sotalol 80 mg tablet 80 mg PO QDAY 0RF isosorbide mononitrate 60 MG tablet extended release 24 hr 60 mg PO QDAY 30 Days Qty: 30 0RF ergocalciferol (vitamin D2) 50,000 unit capsule 50,000 unit PO QWEEK Qty: 4.285 3RF allopurinol 100 mg tablet 100 mg PO QDAY 0RF sevelamer HCl 800 mg tablet 800 mg PO TID 0RF omeprazole 20 mg capsule,delayed release(DR/EC) 20 mg PO QDAY 0RF acetaminophen-codeine 300-30 mg tablet 1 tab PO Q6H MDD 4 tabs per day PRN (Reason: Pain) 0RF furosemide 40 mg tablet 40 mg PO QDAY 0RF hydralazine 10 mg tablet 10 mg PO BID Qty: 60 1RF Follow Up Plan Patient Disposition: Home, Self-Care Overall status at discharge: patient is progressing back to baseline Discharge Orders: Discharge Order (Routine); Ordered 03/12/22 Ordered By: Camron FUENTES VTE Deep Vein Thrombosis/Pulmonary Embolism Present on Admission: No
== END 2022-03-12 13:10 | disposition home or self-care (01) | DRG 193 ==
LOC: MEDSUR 09:30
PROVIDERS: ADMIT Internal Medicine; ATTEND Internal Medicine